=== PATIENT | male | born 1940 | race Two or more races ===

== ENCOUNTER 2017-12-16 12:30 | Outpatient (RCR) | payer MEDICARE, BC | END 2017-12-28 | disposition home or self-care (01) | LOC: PTY 12:30 | DX: M62.81 Muscle weakness (generalized) (principal); M48.07 Spinal stenosis, lumbosacral region; M54.2 Cervicalgia | CPT/HCPCS: 97110; 97140; 97162; G8978; G8979 ==

== ENCOUNTER 2017-12-30 12:30 | Outpatient (RCR) | payer MEDICARE, BC | END 2018-01-27 | disposition home or self-care (01) | LOC: PTY 12:30 | DX: M48.061 Spinal stenosis, lumbar region without neurogenic claudication (principal); M62.81 Muscle weakness (generalized); M54.2 Cervicalgia | CPT/HCPCS: 97032; 97110; 97116; 97535; G0283 ==